=== PATIENT | female | born 1945 | race Caucasian/White ===

== ENCOUNTER 2017-01-07 10:07 | Emergency (ER) | payer MEDICARE ==
[~2017-01-07] VITALS: Ht 162.6 cm; Wt 93.0 kg
[2017-01-07] MEDS ORDERED: IOHEXOL 350 MG/ML 10 ML VIAL (for RAD DIAG) IVCONTRAST ONE (10:08)
[2017-01-07] MEDS ORDERED: LOSA25TA PO (10:22)
[2017-01-07] MEDS ORDERED: HYDR25TA5 PO (10:22)
[2017-01-07] MEDS ORDERED: ATEN100T PO (10:22)
[2017-01-07] MEDS ORDERED: CETI10CH CHEW (10:22)
[2017-01-07] MEDS ORDERED: GLIP10TA6 PO (10:22)
[2017-01-07 10:27] VITALS: BP 180/74; PULSE 53; RESP 17; TEMP 98; O2SAT 97
[2017-01-07] MEDS ORDERED: ZOFR4TAB PO (10:27)
[2017-01-07] MEDS ORDERED: PANT40TA3 PO (10:27)
[2017-01-07] MEDS ORDERED: HYDR-3516 PO (10:27)
[2017-01-07] MEDS ORDERED: CELE1CAP6 PO (10:27)
[2017-01-07] MEDS ORDERED: HYDROmorphone HCL PF 1 MG/ML VIAL IV PUSH ONE (10:30)
[2017-01-07] MEDS ORDERED: ONDANSETRON HCL 4 MG/2 ML VIAL IV PUSH ONE (10:30)
--- NOTE | 2017-01-07 10:33 | PD ---
HPI Chief Complaint: Back/ Neck Pain or Injury Time Seen by Provider: 10:22 Travel History International Travel<30 days: No Contact w/Intl Traveler<30days: No Traveled to known affect area: No History of Present Illness HPI 71-year-old female patient with history of hypertension, COPD, hernia surgeries , presents to the ER today for 1 week history of right mid to lower back pain which does not radiate anywhere. She states that has been getting worse or the past week and is now a 10 out of 10, worse with movements. She denies any incontinence, fevers, abdominal pains, or any other symptoms. She states it does not radiate anywhere. She had been seen by her primary care physician in the beginning of the week and had been given muscle relaxants but states is not improving. She denies any injuries. Modifying Factors: Worse with movements Associated Signs & Symptoms: Right sided back pain worsening in the past week Risk Factors: None PFSH Past Medical History Arthritis: Yes COPD: Yes Diabetes: Yes Patient Takes Glucophage: No GERD: Yes Hypertension: Yes Shingles: Yes Influenza Vaccination: No Para: 2 Past Surgical History Abdominal Surgery: Yes (2xhernia) Cholecystectomy: Yes Gynecologic Surgery: Yes (breast) Hysterectomy: Yes Social History Alcohol Use: No Tobacco Use: No Substance Use: No Allergies-Medications (Allergen,Severity, Reaction): Coded Allergies: No Known Allergies (Verified Allergy, Unknown, 01/07/17) Reported Meds & Prescriptions Reported Meds & Active Scripts Active Reported Hydrocodone-Acetaminophen 5-325 mg Tab 1 Tab PO Q6H PRN Pantoprazole (Pantoprazole Sodium) 40 Mg Tab 40 Mg PO DAILY Zofran (Ondansetron HCl) 4 Mg Tab 4 Mg PO Q6HR PRN Celecoxib 100 Mg Cap 100 Mg PO BID Losartan (Losartan Potassium) 25 Mg Tab 25 Mg PO HS Glipizide 10 Mg Tab 10 Mg PO BIDAC Take 30 minutes before a meal Cetirizine (Cetirizine HCl) 10 Mg Chew 10 Mg CHEW DAILY Hydrochlorothiazide 25 Mg Tab 25 Mg PO DAILY Atenolol 100 Mg Tab 100 Mg PO BID Review of Systems Except as stated in HPI: all other systems reviewed are Neg Physical Exam Narrative GENERAL: Well-developed elderly white female patient currently and moderate distress. Awake and oriented 3. SKIN: Focused skin assessment warm/dry. HEAD: Atraumatic. Normocephalic. EYES: Pupils equal and round. No scleral icterus. No injection or drainage. ENT: No nasal bleeding or discharge. Mucous membranes pink and moist. NECK: Trachea midline. No JVD. CARDIOVASCULAR: Regular rate and rhythm. No murmur appreciated. RESPIRATORY: No accessory muscle use. Clear to auscultation. Breath sounds equal bilaterally. GASTROINTESTINAL: Abdomen soft, non-tender, nondistended. Hepatic and splenic margins not palpable. BACK: No CVA tenderness. No rash. No point tenderness on palpation of the spine. There is mild tenderness to palpation in the right lumbar paraspinal regions. MUSCULOSKELETAL: No obvious deformities. No clubbing. No cyanosis. No edema. NEUROLOGICAL: Awake and alert. No obvious cranial nerve deficits. Motor grossly within normal limits. Normal speech. PSYCHIATRIC: Appropriate mood and affect; insight and judgment normal. Data Data Last Documented VS Vital Signs Date Time Temp Pulse Resp B/P (MAP) Pulse Ox O2 Delivery O2 Flow Rate FiO2 01/07/17 13:23 50 15 184/75 (111) 95 Room Air 01/07/17 10:27 98.0 Orders Orders Complete Blood Count With Diff (01/07/17 10:22) Comprehensive Metabolic Panel (01/07/17 10:22) Urinalysis - C+S If Indicated (01/07/17 10:22) Cta Thor Abd Aorta W Iv C W3d (01/07/17 ) Hydromorphone Pf Inj (Dilaudid Pf Inj) (01/07/17 10:30) Ondansetron Inj (Zofran Inj) (01/07/17 10:30) Iohexol 350 Inj (Omnipaque 350 Inj) (01/07/17 10:08) Labs Laboratory Tests Test 01/07/17 10:30 01/07/17 13:20 White Blood Count 8.2 TH/MM3 Red Blood Count 4.69 MIL/MM3 Hemoglobin 13.9 GM/DL Hematocrit 39.2 % Mean Corpuscular Volume 83.5 FL Mean Corpuscular Hemoglobin 29.6 PG Mean Corpuscular Hemoglobin Concent 35.4 % Red Cell Distribution Width 13.2 % Platelet Count 180 TH/MM3 Mean Platelet Volume 8.9 FL Neutrophils (%) (Auto) 58.8 % Lymphocytes (%) (Auto) 33.4 % Monocytes (%) (Auto) 5.6 % Eosinophils (%) (Auto) 1.7 % Basophils (%) (Auto) 0.5 % Neutrophils # (Auto) 4.8 TH/MM3 Lymphocytes # (Auto) 2.7 TH/MM3 Monocytes # (Auto) 0.5 TH/MM3 Eosinophils # (Auto) 0.1 TH/MM3 Basophils # (Auto) 0.0 TH/MM3 CBC Comment DIFF FINAL Differential Comment Blood Urea Nitrogen 13 MG/DL Creatinine 0.89 MG/DL Random Glucose 179 MG/DL Total Protein 7.3 GM/DL Albumin 3.3 GM/DL Calcium Level 9.2 MG/DL Alkaline Phosphatase 73 U/L Aspartate Amino Transf (AST/SGOT) 27 U/L Alanine Aminotransferase (ALT/SGPT) 23 U/L Total Bilirubin 0.6 MG/DL Sodium Level 134 MEQ/L Potassium Level 3.5 MEQ/L Chloride Level 97 MEQ/L Carbon Dioxide Level 30.0 MEQ/L Anion Gap 7 MEQ/L Estimat Glomerular Filtration Rate 63 ML/MIN Urine Color LIGHT-YELLOW Urine Turbidity CLEAR Urine pH 7.5 Urine Specific [place] 1.022 Urine Protein NEG mg/dL Urine Glucose (UA) NEG mg/dL Urine Ketones NEG mg/dL Urine Occult Blood NEG Urine Nitrite NEG Urine Bilirubin NEG Urine Urobilinogen LESS THAN 2.0 MG/DL Urine Leukocyte Esterase NEG Urine RBC LESS THAN 1 /hpf Urine WBC LESS THAN 1 /hpf Urine Squamous Epithelial Cells 1 /hpf Microscopic Urinalysis Comment CULT NOT INDICATED MDM Medical Decision Making Medical Screen Exam Complete: Yes Emergency Medical Condition: Yes Medical Record Reviewed: Yes Interpretation(s) Laboratory Tests Test 01/07/17 10:30 01/07/17 13:20 Random Glucose 179 MG/DL (74-106) Albumin 3.3 GM/DL (3.4-5.0) Sodium Level 134 MEQ/L (136-145) Chloride Level 97 MEQ/L (98-107) Estimat Glomerular Filtration Rate 63 ML/MIN (>89) Last 24 hours Impressions Aorta CTA 01/07/17 0000 Signed Impressions: Service Date/Time: Monday, January 07, 2017 12:08 - CONCLUSION: 1. No acute abnormality. In particular, no aortic aneurysm or dissection. 2. Prior cholecystectomy. 3. Mild colonic diverticulosis. Oneil Dobson Jr., MD Differential Diagnosis Right lower back pains: Muscle spasms versus arthritis versus radiculopathy versus sciatica versus renal colic versus occult fractures Narrative Course Lab work did not show any signs of significant leukocytosis, metabolic issues, or UA abnormalities. CAT scan did not show any signs of acute intra-abdominal processes or aortic processes. At this point, symptoms are much more likely to be secondary to lumbar radiculopathy or sciatica. Patient was given opiate pain medication while in the ER. On reevaluation at 2 PM, she appears quite comfortable and has been able to get up and go to the commode. On further questioning, she states that she has only taken 3 tablets of her pain medications in the last few days. It appears that she is not taking this consistently and I suspect that that may be why she is not getting significant pain relief. She was instructed to take the medications on an as-needed basis every 6 hours. Follow-up with primary care doctor. Return for any worsening in pain or new symptoms as needed. The plan has discussed with her and she states understanding. Diagnosis Primary Impression: Low back pain Disposition: 01 DISCHARGE HOME Condition: Stable Oscar Dodge MD Jan 07, 2017 10:33
[2017-01-07 10:56] LABS: AUTOMATED NEUTROPHIL # 4.8 TH/MM3 (1.8-7.7); BASOPHIL % 0.5 % (0.0-2.0); EOSINOPHIL # 0.1 TH/MM3 (0-0.4); EOSINOPHIL % 1.7 % (0.0-4.0); HEMATOCRIT 39.2 % (35.0-46.0); HEMOGLOBIN 13.9 GM/DL (11.6-15.3); LYMPH % 33.4 % (9.0-44.0); LYMPHOCYTE # 2.7 TH/MM3 (1.0-4.8); MEAN CELL VOLUME 83.5 FL (80.0-100.0); MEAN CORPUSCULAR HEMOGLOBIN 29.6 PG (27.0-34.0); MEAN CORPUSCULAR HGB CONC 35.4 % (32.0-36.0); MEAN PLATELET VOLUME 8.9 FL (7.0-11.0); MONO % 5.6 % (0.0-8.0); MONOCYTE # 0.5 TH/MM3 (0-0.9); NEUT % 58.8 % (16.0-70.0); PLATELET COUNT 180 TH/MM3 (150-450); RED BLOOD COUNT 4.69 MIL/MM3 (4.00-5.30); RED CELL DISTRIBUTION WIDTH 13.2 % (11.6-17.2); WHITE BLOOD COUNT 8.2 TH/MM3 (4.0-11.0)
[2017-01-07 11:14] LABS: ALKALINE PHOSPHATASE 73 U/L (45-117); ALT (GPT) 23 U/L (10-53); TOTAL BILIRUBIN ADULT 0.6 MG/DL (0.2-1.0); TOTAL PROTEIN 7.3 GM/DL (6.4-8.2)
[2017-01-07 11:33] LABS: ALBUMIN 3.3 GM/DL (3.4-5.0); AST (GOT) 27 U/L (15-37); CALCIUM 9.2 MG/DL (8.5-10.1); CHLORIDE 97 MEQ/L (98-107); CREATININE 0.89 MG/DL (0.50-1.00); GLOMERULAR FILTRATION RATE 63 ML/MIN (>89); GLUCOSE,RANDOM 179 MG/DL (74-106); SODIUM (NA) 134 MEQ/L (136-145)
[2017-01-07 11:34] LABS: BLOOD UREA NITROGEN 13 MG/DL (7-18)
[2017-01-07 13:23] VITALS: BP 184/75; PULSE 50; RESP 15; O2SAT 95
--- NOTE | 2017-01-07 13:27 | RADRPT ---
EXAM DATE/TIME: 01/07/2017 12:08 [facility] COMPARISON: No previous studies available for comparison. INDICATIONS : Back pain for six days. IV CONTRAST: 100 cc Omnipaque 350 (iohexol) IV RADIATION DOSE: 11.45 CTDIvol (mGy) MEDICAL HISTORY : None SURGICAL HISTORY : None. ENCOUNTER: Subsequent ACUITY: 4 - 6 days PAIN SCALE: 7/10 LOCATION: Bilateral back TECHNIQUE: Volumetric scanning was performed using a multi-row detector CT scanner. The data was post processed with a variety of visualization algorithms including full volume maximum intensity projection, multi -planar sliding thin slab reformation, curved planar reformation, and surface rendering techniques. Using automated exposure control and adjustment of the mA and/or kV according to patient size, radiat ion dose was kept as low as reasonably achievable to obtain optimal diagnostic quality images. DICOM format image data is available electronically for review and comparison. FINDINGS: Thoracic/abdominal aorta: There is a trace amount of fluid adjacent to the anterior aortic arch. The thoracic and abdominal aor ta is normal in caliber and course. No dissection, aneurysm, or luminal irregularity observed. No wal l thickening. The aforementioned fluid likely is within the superior epicardial recess. Arch vessels are patent. The celiac, SMA, ENRRIQUE, and renal arteries are patent. 2 renal arteries are seen supplying the right kidney and a single on the left. Inflow vessels are patent. Heart and mediastinum: The heart is mildly enlarged. Calcification is noted involving the mitral valve. No pericardial effus ion. Trace amount of fluid within the epicardial recess. Pulmonary arteries are normal in caliber. No adenopathy. Lung parenchyma: No acute infiltrate or effusion. No mass. Other structures: The gallbladder is surgically absent. The abdominal viscera are otherwise unremarkable. Scattered col onic diverticuli without acute inflammation. Uterus is surgically absent. CONCLUSION: 1. No acute abnormality. In particular, no aortic aneurysm or dissection. 2. Prior cholecystectomy. 3. Mild colonic diverticulosis. Oneil Dobson Jr., MD on January 07, 2017 at 13:16 Board Certified Radiologist. This report was verified electronically.
[2017-01-07 13:34] LABS: BILIRUBIN, URINE NEG (NEG); BLOOD, URINE NEG (NEG); GLUCOSE,URINE NEG (NEG); KETONE, URINE NEG (NEG); NITRITE,URINE NEG (NEG); PH, URINE 7.5 (5.0-8.5); SQUAMOUS EPITHELIAL CELL URINE 1 /hpf (0-5); URINE COLOR LIGHT-YELLOW (YELLW/STRAW); URINE LEUKOCYTE ESTERASE NEG (NEG)
== END 2017-01-07 15:02 | disposition home or self-care (01) ==
LOC: NEPC 10:07
DX: M54.5 Low back pain (principal); M54.6 Pain in thoracic spine; I10 Essential (primary) hypertension; E11.9 Type 2 diabetes mellitus without complications; Z79.84 Long term (current) use of oral hypoglycemic drugs; Z87.09 Personal history of other diseases of the respiratory system; Z87.19 Personal history of other diseases of the digestive system; Z86.69 Personal history of other diseases of the nervous system and sense organs
CPT/HCPCS: 71275; 74174; 80053; 81001; 85025; 96374; 96375; 99285; J1170; J2405; Q9967